=== PATIENT | female | born 1990 | race African-American/Black ===

== ENCOUNTER 2016-08-22 13:07 | Inpatient (IN) ==
[2016-08-22 14:38] LABS: Apearance,Urine Slightly Hazy (Clear); Bilirubin,Urine Negative (Negative); Blood, Urine Negative (Negative); Glucose,Urine (UA) Negative (Negative); Ketones,Urine Negative (Negative); Mucus,Urine Moderate /LPF (Occasional); Nitrite,Urine Negative (Negative); Protein,Urine 30 MG/DL; RBC,Urine 1 /HPF (0-4); Squamous Epithelial Cell,Urine Occasional /HPF (0-10); Urine Color Yellow (Yellow); Urine Specific Gravity 1.021 (1.001-1.035); Urine Urobilinogen < 2.0 EU/DL (0.2-1.0); WBC,Urine 6 /HPF (0-6)
[2016-08-22] MEDS ORDERED: ONDANSETRON 4 MG/2 ML VIAL IV PRN (15:11)
[2016-08-22] MEDS ORDERED: MEPERIDINE 50 MG/1 ML VIAL IV PRN (15:11)
[2016-08-22] MEDS ORDERED: BUTORPHANOL 2 MG/ML VIAL IV PRN (15:11)
[2016-08-22] MEDS ORDERED: LACTATED RINGERS 1,000 ML IV SCH (15:30)
[2016-08-22 16:07] LABS: Basophils % 0.4 % (0.0-0.8); Eosinophils # 0.1 10*3/uL (0.0-0.87); Eosinophils % 0.7 % (0.00-10.9); Hematocrit 35.2 VOL% (35.7-47.0); Hemoglobin 11.3 GM/DL (12.0-16.0); Immature Granulocytes % 0.4 %; Immature Granulocytes Absolute 0.03 #; Lymphocytes # 2.2 10*3/uL (1.4-4.0); Lymphocytes % 30.9 % (21.3-54.2); Mean Corpuscular HGB Conc 32.1 GM/DL (32-36); Mean Corpuscular Hemoglobin 26 PG (27-34); Mean Corpuscular Volume 81.7 FL (87-102); Mean Platelet Volume 12.2 FL (9.6-12.0); Monocytes # 0.5 10*3/uL (0.11-0.8); Monocytes % 7.4 % (1.7-12.7); Neutrophils # 4.3 10*3/uL (1.4-7.4); Neutrophils % 60.2 % (38.7-73.9); Platelet Count 242 T/CUMM (130-400); Red Blood Count 4.31 MC/CUMM (3.8-5.5); Red Cell Distribution Width 15.5 % (9.3-17.3); White Blood Count 7.1 T/CUMM (4-12)
--- NOTE | 2016-08-22 16:15 | OB/GYN History & Physical ---
History of Present Illness Chief complaint: In for PIH and evaluation of status History of present illness: Ms. Mims is a 25 year old female 2 para 1 living 1. Her AUGIE is 2016 for an estimated gestational age of 37 weeks and 4 days. The patient presented to the labor department for nonstress test secondary to elevated blood pressures. The patient was monitored for several hours her blood pressures remain unstable. In light of the sinus patient will be admitted for observation and possible section per Dr. Briseno in the morning. The risk and benefits of been thoroughly discussed with this patient significant other plan of care has been discussed with Dr. Briseno, all parties are in agreement plan. The patient received her care through the [facility] and her course was complicated by the fact that the patient was hypertensive. And also that the patient was a previous section with an emergency secondary to distress. labs she is O+, RPR is nonreactive, hepatitis B is negative, HIV is negative, rubella is immune , GBS cultures negative. Review of systems is negative with exception of above. Home Medications Medication Instructions Recorded Confirmed Type Labetalol Tab [Trandate Tab] 1 tablet PO BID 06/28/16 08/20/16 History Vits #90/Iron Fum/FA 1 tablet PO DAILY 06/28/16 08/20/16 History [ Formula Tablet] Ferrous Sulfate [Ferrous Sulfate 1 capsule PO DAILY 08/08/16 08/20/16 History Cap] Allergies Allergy/AdvReac Type Severity Reaction Status Date / Time No Known Allergies Allergy Verified 08/22/16 13:32 12 point system: reviewed and no additional remarkable complaints except as stated (PIH) Medical,Surgical,& Family Hx - Medical History Cardio: History of: Hypertension Reproductive: History of: Sexually Transmitted Disorders (Gonorrhea in 2013) - Surgical History Reproductive Surgeries: Surgical HX of;: Breast Surgery (Fibroadenomas removed from the breast), Section - Family History Family History: Reports;: Family Hypertension (Mother) - Social History Smoking Status: Never smoker Marital Status: Single Lives With:: Significant Other Functional capacity: independent ambulation 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 - Constitutional General appearance: no acute distress - Antepartum / Post Antepartum Exam Cervix - Dilatation: 1 cm Effacement: 50% Station: -3 Rupture: Intact Presentation: Vertex Heart Rate: 130s Breast: bilateral: normal Abdomen obstetrics: Present: bowel sounds normal Vagina: Present: normal moisture Uterus exam: Present: enlarged Anus/Rectum: Present: normal perianal skin - Neck Neck exam: Present: normal inspection - Respiratory Respiratory exam: Present: clear to auscultation bilaterally - Cardiovascular Cardiovascular exam: Present: regular rate and rhythm - GI/Abdominal GI/Abdominal exam: Present: normal bowel sounds, soft - Extremities Exam Extremities exam: Present: edema - Neurological Exam Neurological exam: Present: alert, oriented X3 - Psychiatric Psychiatric exam: Present: normal affect, normal mood - Skin Skin exam: Present: normal color, warm Assessment and Plan (1) 37 weeks gestation of Status: Acute Assessment and plan: Admit IV Fluids Active management of hypertension Informed consent for repeat section Anticipate delivery of a viable infant Current Visit: Yes (2) Hypertension affecting in third trimester Status: Acute Assessment and plan: Same as above. Current Visit: Yes
[2016-08-22] MEDS ORDERED: ALUMINUM/MAGNES/SIMETH MAX STR 30 ML UDCUP PO PRN (19:25)
[2016-08-22] MEDS: LABETALOL 200 MG TABLET PO SCH (21:04)
[2016-08-22 21:51] LABS: Alanine Aminotransferase 11 U/L (13-56); Albumin 2.5 G/DL (3.4-5.0); Alkaline Phosphatase 140 U/L (45-117); Aspartate Amino Transferase 10 U/L (0-37); Bilirubin,Total < 0.39 MG/DL (0.2-1.0); Blood Urea Nitrogen 9 MG/DL (7-18); Calcium 8.8 MG/DL (8.5-10.1); Glucose 110 MG/DL (74-106); Osmolality,Calculated 276.5 MOS/KG (273-304); Potassium 3.7 MMOL/L (3.5-5.1); Sodium 139 MMOL/L (136-145); Total Protein 6.1 G/DL (6.4-8.3)
[2016-08-22 21:57] LABS: PT Patient Result 10.3 SECS; Partial Thromboplastin Time 26.2 SECS (0-40)
[2016-08-23] MEDS ORDERED: LACTATED RINGERS 1,000 ML IV SCH ×2 (06:00→10:30)
[2016-08-23 06:15] LABS: Basophils % 0.5 % (0.0-0.8); Eosinophils # 0.1 10*3/uL (0.0-0.87); Eosinophils % 1.1 % (0.00-10.9); Hematocrit 30.7 VOL% (35.7-47.0); Hemoglobin 10.1 GM/DL (12.0-16.0); Immature Granulocytes % 0.3 %; Immature Granulocytes Absolute 0.02 #; Lymphocytes # 2.3 10*3/uL (1.4-4.0); Lymphocytes % 35.2 % (21.3-54.2); Mean Corpuscular HGB Conc 32.9 GM/DL (32-36); Mean Corpuscular Hemoglobin 26 PG (27-34); Mean Corpuscular Volume 80.2 FL (87-102); Mean Platelet Volume 11.9 FL (9.6-12.0); Monocytes # 0.6 10*3/uL (0.11-0.8); Monocytes % 9.1 % (1.7-12.7); Neutrophils # 3.5 10*3/uL (1.4-7.4); Neutrophils % 53.8 % (38.7-73.9); Platelet Count 211 T/CUMM (130-400); Red Blood Count 3.83 MC/CUMM (3.8-5.5); Red Cell Distribution Width 15.3 % (9.3-17.3); White Blood Count 6.5 T/CUMM (4-12)
[2016-08-23 06:21] LABS: PT Patient Result 10.1 SECS; Partial Thromboplastin Time 25.4 SECS (0-40)
[2016-08-23 06:44] LABS: Albumin 2.5 G/DL (3.4-5.0); Bilirubin,Total 0.5 MG/DL (0.2-1.0); Calcium 8.8 MG/DL (8.5-10.1); Osmolality,Calculated 271.7 MOS/KG (273-304); Potassium 4.1 MMOL/L (3.5-5.1); Uric Acid 4.9 MG/DL (2.6-6.0)
[2016-08-23] MEDS ORDERED: CITRIC ACID/SODIUM CITRATE 30 ML UDCUP PO ONE (08:20)
[2016-08-23] MEDS ORDERED: LACTATED RINGERS 1,000 ML IV ONE (08:20)
[2016-08-23] MEDS ORDERED: FAMOTIDINE 20 MG/2 ML VIAL IV ONE (08:20)
[2016-08-23] MEDS ORDERED: OXYTOCIN/LR 30 UNIT/1,000 ML BAG IV ONE (08:33)
[2016-08-23] MEDS ORDERED: ceFAZolin 2,000 MG in PREMIX 1 EACH IV ONE (08:33)
[2016-08-23] MEDS ORDERED: OXYTOCIN 10 UNIT/ML VIAL ONE (08:58)
[2016-08-23] MEDS: LABETALOL 200 MG TABLET PO SCH ×2 (09:00→21:02)
--- NOTE | 2016-08-23 10:24 | Operative Note ---
Date of procedure: 08/23/16 Procedure: Preoperative diagnosis: PIH, uncontrolled with antihypertensive medicine Postoperative diagnosis: Same Anesthesia:[] Regional anesthesia, epidural Estimated blood loss: [] 300 cc Surgeon: Dr. Briseno Findings: [] Delivery time was 954, female , Apgars was 9 at 1 minute 9 at 5 minutes, 6 pounds and 3 ounces, estimated blood loss was 300 cc Complications: None Procedure: Low transverse section The patient was taken to the operating suite heart tones were obtained prior to and after regional anesthesia was obtained. She was placed in supine position her abdomen was prepped and draped in usual manner for major abdominal surgery. Through an abdominal incision the skin, subcutaneous, fascial layer and peritoneal the abdomen was entered. The bladder flap was created and a low transverse incision was made.. Fluid was clear and normal amount X, Apgars, the placenta was delivered and sent to lab for further evaluation. Injected with intrauterine Pitocin. The first layer of the uterus was closed with #1 Vicryl in a continuous locking manner. Close to imbricate the first layer with #1 Vicryl. The peritoneum was approximated with #2-0 Vicryl.[] All the last sponges and instruments were accounted for -2.) #2-0 Vicryl. Fascia was approximated with #0-0 Maxon.. The skin was approximated with stewart. She tolerated procedure well and was taken to recovery room in stable condition. Surgeon / Physician: Fadi Briseno Results - Labs CBC & BMP: 08/23/16 05:29 08/23/16 05:29 Discharge Plan - Discharge Medications No Action Vits #90/Iron Fum/FA [ Formula Tablet] 1 tablet PO DAILY Ferrous Sulfate [Ferrous Sulfate Cap] 1 capsule PO DAILY Labetalol Tab [Trandate Tab] 1 tablet PO BID - Follow Up or Referral - Forms/Instructions
[2016-08-23] MEDS ORDERED: ONDANSETRON 4 MG/2 ML VIAL IV PRN (10:25)
[2016-08-23] MEDS ORDERED: ACETAMINOPHEN 325 MG TABLET PO PRN (10:25)
[2016-08-23] MEDS ORDERED: OXYTOCIN/LR 20 UNIT/1,000 ML BAG IV ONE (10:25)
[2016-08-23] MEDS ORDERED: RHO(D) IMMUNE GLOBULIN 300 MCG SYRINGE IM ONE (10:25)
[2016-08-23 10:32] LABS: Cord Venous Blood HCO3 21.1 MMOL/L; Cord Venous Blood PCO2 41.1 MMHG; Cord Venous Blood PO2 34.8
[2016-08-23 10:35] LABS: Apearance,Urine CLEAR (Clear); Bilirubin,Urine Negative (Negative); Blood, Urine Negative (Negative); Glucose,Urine (UA) Negative (Negative); Ketones,Urine Negative (Negative); Nitrite,Urine Negative (Negative); Protein,Urine Negative; Squamous Epithelial Cell,Urine Occasional /HPF (0-10); Urine Color Colorless (Yellow); Urine Specific Gravity 1.004 (1.001-1.035); Urine Urobilinogen < 2.0 EU/DL (0.2-1.0); WBC,Urine <1 /HPF (0-6)
[2016-08-23] MEDS ORDERED: diphenhydrAMINE 50 MG/1 ML VIAL IV ONE (11:02)
[2016-08-23] MEDS ORDERED: fentaNYL 100 MCG/2 ML VIAL ONE (11:24)
--- NOTE | 2016-08-23 16:06 | Anesthesia Post-Op ---
Anesthesia Post OP - Post Ansesthetic Evaluation Patient seen in post op: Yes Resp: within normal limits CV: within normal limits Mental: within normal limits Temp: within normal limits Hojn-Nr-Edlndixln: within normal limits Nausea and Vomiting: within normal limits Pain: within normal limits
[2016-08-23] MEDS: IBUPROFEN 800 MG TABLET PO PRN (16:38)
[2016-08-23 19:40] LABS: Basophils % 0.4 % (0.0-0.8); Eosinophils # 0.1 10*3/uL (0.0-0.87); Eosinophils % 0.6 % (0.00-10.9); Hematocrit 29.7 VOL% (35.7-47.0); Hemoglobin 9.8 GM/DL (12.0-16.0); Immature Granulocytes % 0.5 %; Immature Granulocytes Absolute 0.04 #; Lymphocytes # 2.3 10*3/uL (1.4-4.0); Lymphocytes % 26.9 % (21.3-54.2); Mean Corpuscular Hemoglobin 27 PG (27-34); Mean Corpuscular Volume 80.5 FL (87-102); Monocytes # 0.7 10*3/uL (0.11-0.8); Monocytes % 7.8 % (1.7-12.7); Neutrophils # 5.4 10*3/uL (1.4-7.4); Neutrophils % 63.8 % (38.7-73.9); Platelet Count 201 T/CUMM (130-400); Red Blood Count 3.69 MC/CUMM (3.8-5.5); Red Cell Distribution Width 15.5 % (9.3-17.3); White Blood Count 8.4 T/CUMM (4-12)
[2016-08-23] MEDS: DOCUSATE SODIUM 100 MG CAPSULE PO SCH (20:30)
[2016-08-24 05:20] LABS: Basophils % 0.4 % (0.0-0.8); Eosinophils # 0.1 10*3/uL (0.0-0.87); Eosinophils % 1.3 % (0.00-10.9); Hematocrit 31.7 VOL% (35.7-47.0); Hemoglobin 10.2 GM/DL (12.0-16.0); Immature Granulocytes % 0.5 %; Immature Granulocytes Absolute 0.04 #; Lymphocytes # 1.5 10*3/uL (1.4-4.0); Lymphocytes % 18.9 % (21.3-54.2); Mean Corpuscular HGB Conc 32.2 GM/DL (32-36); Mean Corpuscular Hemoglobin 26 PG (27-34); Mean Corpuscular Volume 80.5 FL (87-102); Mean Platelet Volume 11.6 FL (9.6-12.0); Monocytes # 0.5 10*3/uL (0.11-0.8); Monocytes % 6.7 % (1.7-12.7); Neutrophils # 5.6 10*3/uL (1.4-7.4); Neutrophils % 72.2 % (38.7-73.9); Platelet Count 188 T/CUMM (130-400); Red Blood Count 3.94 MC/CUMM (3.8-5.5); Red Cell Distribution Width 15.3 % (9.3-17.3); White Blood Count 7.7 T/CUMM (4-12)
[2016-08-24] MEDS: IBUPROFEN 800 MG TABLET PO PRN (07:58)
[2016-08-24] MEDS: SIMETHICONE CHEW 80 MG TABLET PO PRN ×2 (09:13→21:44)
[2016-08-24] MEDS: MULTIVITAMIN (PRENATAL) TABLET PO SCH (09:13)
[2016-08-24] MEDS: MAGNESIUM HYDROXIDE SUSP 30 ML UDCUP PO PRN ×2 (09:13→21:45)
[2016-08-24] MEDS: LABETALOL 200 MG TABLET PO SCH ×2 (09:15→21:44)
[2016-08-24] MEDS: DOCUSATE SODIUM 100 MG CAPSULE PO SCH ×2 (09:15→21:44)
--- NOTE | 2016-08-24 12:25 | OB/GYN Progress Note ---
Assessment and Plan (1) 37 weeks gestation of Status: Acute Assessment and plan: Admit IV Fluids Active management of hypertension Informed consent for repeat section Anticipate delivery of a viable infant Current Visit: Yes (2) Hypertension affecting in third trimester Status: Acute Assessment and plan: Same as above. Current Visit: Yes (3) S/P primary low transverse Status: Acute Current Visit: Yes (4) S/P repeat low transverse Status: Acute Assessment and plan: Initiate routine postop orders. 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 Bonding well with . Exam SHEET METAL FABRICATOR - Constitutional Vitals: Vital Signs Temp Pulse Resp BP Pulse Ox 08/24/16 11:34 97.0 F L 80 17 158/83 96 08/24/16 11:33 17 08/24/16 10:00 20 08/24/16 08:00 22 08/24/16 07:37 98 F 71 22 166/94 99 08/24/16 04:00 98.2 F 77 20 158/90 99 08/24/16 00:01 97.6 F 84 20 145/80 100 08/23/16 22:00 20 08/23/16 20:00 98.3 F 64 18 142/83 99 08/23/16 17:42 20 08/23/16 16:00 20 08/23/16 15:15 64 20 177/79 99 08/23/16 14:15 55 L 20 164/91 99 08/23/16 14:00 20 08/23/16 13:45 59 L 20 167/84 100 08/23/16 13:15 97.8 F 58 L 20 167/85 100 General appearance: no acute distress - Antepartum / Post Post Exam Breast: bilateral: normal Abdomen obstetrics: Present: bowel sounds normal Vagina: Present: normal moisture, discharge (light lochia rubra) Uterus exam: Present: enlarged (FF Ml) Anus/Rectum: Present: normal perianal skin - Head Head exam: Present: normal inspection - Cardiovascular Cardiovascular exam: Present: regular rate and rhythm - GI/Abdominal GI/Abdominal exam: Present: normal bowel sounds, soft - Extremities Exam Extremities exam: Present: normal inspection - Back Exam Back exam: Present: normal inspection - Neurological Exam Neurological exam: Present: alert, oriented X3 - Psychiatric Psychiatric exam: Present: normal affect, normal mood - Skin Skin exam: Present: normal color, warm Results - Labs CBC & BMP: 08/24/16 05:03 08/23/16 05:29
[2016-08-25] MEDS ORDERED: MAGNESIUM CITRATE 300 ML BOTTLE PO ONE (08:03)
[2016-08-25] MEDS ORDERED: BISACODYL 10 MG SUPP RECTAL ONE (08:03)
[2016-08-25] MEDS: DOCUSATE SODIUM 100 MG CAPSULE PO SCH (08:57)
[2016-08-25] MEDS: MULTIVITAMIN (PRENATAL) TABLET PO SCH (08:57)
[2016-08-25] MEDS: LABETALOL 200 MG TABLET PO SCH (08:57)
[2016-08-25] MEDS: MAGNESIUM HYDROXIDE SUSP 30 ML UDCUP PO PRN (08:58)
[2016-08-25] MEDS: IBUPROFEN 800 MG TABLET PO PRN (10:30)
[2016-08-25 11:42] VITALS: BP 161/90
--- NOTE | 2016-10-14 02:11 | Discharge Summary ---
DATE OF ADMISSION: 08/22/2016 DATE OF DISCHARGE: 08/24/2016 This patient was admitted with elevation of her blood pressure at 37 weeks and 4 days. She was obser john overnight. Blood pressure remained unstable. She was a previous section as well. Seco ndary to distress, she underwent a repeat section uneventfully and delivered a viable 6 pounds and 3 ounces. Apgars with 9 at 1 minute and 9 at 5 minutes. She has unremarkable po stoperative course, remained in the hospital for two days and was discharged without any c omplications. She advised to follow up her office in approximately two weeks.
== END 2016-08-25 15:50 | disposition home or self-care (01) | DRG 765 ==
LOC: N.LDOUT 13:07 → N.LD 13:08 → N.OB 08-23 13:09
PROVIDERS: ADMIT Obstetrics & Gynecology; ATTEND Obstetrics & Gynecology
PROC: LDCSECT (ICD-10-PCS; 2016-08-23 08:30)

== ENCOUNTER 2018-06-23 09:40 | Inpatient (IN) ==
[2018-06-23] MEDS ORDERED: LACTATED RINGERS 1,000 ML IV ONE (11:39)
[2018-06-23] MEDS ORDERED: ONDANSETRON 4 MG/2 ML VIAL IV ONE (11:39)
[2018-06-23] MEDS ORDERED: MEPERIDINE 50 MG/1 ML VIAL IV ONE (11:39)
[2018-06-23] MEDS: LACTATED RINGERS 1,000 ML IV SCH ×2 (11:53→19:40)
[2018-06-23] MEDS ORDERED: MEPERIDINE 25 MG/1 ML VIAL IV ONE (12:00)
[2018-06-23] MEDS ORDERED: ceFAZolin 3,000 MG in SYRINGE 1 EACH IV ONE (12:51)
[2018-06-23] MEDS ORDERED: FAMOTIDINE 20 MG/2 ML VIAL IV ONE (12:51)
[2018-06-23] MEDS ORDERED: CITRIC ACID/SODIUM CITRATE 30 ML UDCUP PO ONE (12:51)
[2018-06-23 13:33] LABS: Basophils % 0.6 % (0.0-0.8); Eosinophils # 0.1 10*3/uL (0.0-0.87); Eosinophils % 0.8 % (0.00-10.9); Hematocrit 26.2 VOL% (35.7-47.0); Hemoglobin 7.7 GM/DL (12.0-16.0); Immature Granulocytes % 0.6 %; Immature Granulocytes Absolute 0.04 #; Lymphocytes # 1.8 10*3/uL (1.4-4.0); Lymphocytes % 28.8 % (21.3-54.2); Mean Corpuscular HGB Conc 29.4 GM/DL (32-36); Mean Corpuscular Volume 76.2 FL (87-102); Mean Platelet Volume 12.4 FL (9.6-12.0); Monocytes % 8.8 % (1.7-12.7); NRBC # 0.02 10*3/uL; Neutrophils % 60.4 % (38.7-73.9); Platelet Count 199 T/CUMM (130-400); Red Blood Count 3.44 MC/CUMM (3.8-5.5); Red Cell Distribution Width 15.2 % (9.3-17.3); White Blood Count 6.4 T/CUMM (4-12)
[2018-06-23 13:42] LABS: INR 0.9; PT Patient Result 10.2 SECS; Partial Thromboplastin Time 23.6 SECS (0-40)
[2018-06-23 13:57] LABS: Alanine Aminotransferase 11 U/L (13-56); Albumin 2.7 G/DL (3.4-5.0); Alkaline Phosphatase 188 U/L (45-117); Aspartate Amino Transferase 13 U/L (0-37); Bilirubin,Total < 0.39 MG/DL (0.2-1.0); Blood Urea Nitrogen 12 MG/DL (7-18); Calcium 8.4 MG/DL (8.5-10.1); Glucose 83 MG/DL (74-106); Osmolality,Calculated 275.5 MOS/KG (273-304); Total Protein 6.9 G/DL (6.4-8.3)
[2018-06-24] MEDS ORDERED: CITRIC ACID/SODIUM CITRATE 30 ML UDCUP ONE (08:45)
[2018-06-24] MEDS ORDERED: OXYTOCIN/LR 30 UNIT/1,000 ML BAG IV ONE (08:53)
[2018-06-24] MEDS ORDERED: ceFAZolin 1,000 MG VIAL ONE (08:54)
[2018-06-24] MEDS ORDERED: OXYTOCIN 10 UNIT/ML VIAL ONE (08:54)
[2018-06-24] MEDS ORDERED: FAMOTIDINE 20 MG/2 ML VIAL IV ONE (08:54)
[2018-06-24] MEDS: LACTATED RINGERS 1,000 ML IV SCH (09:01)
[2018-06-24 10:31] LABS: Cord Venous Blood HCO3 21.1 MMOL/L; Cord Venous Blood PCO2 41.5 MMHG; Cord Venous Blood PO2 36.1
[2018-06-24 10:38] LABS: Apearance,Urine Clear (Clear); Bilirubin,Urine Negative (Negative); Blood, Urine Negative (Negative); Glucose,Urine (UA) Negative (Negative); Ketones,Urine Negative (Negative); Nitrite,Urine Negative (Negative); Protein,Urine Negative; RBC,Urine Rare /HPF (0-4); Squamous Epithelial Cell,Urine Many /HPF (0-10); Urine Color Yellow (Yellow); Urine Urobilinogen < 2.0 EU/DL (0.2-1.0)
[2018-06-24 10:39] LABS: Mucus,Urine Trace /LPF (Occasional)
[2018-06-24] MEDS ORDERED: diphenhydrAMINE 50 MG/1 ML VIAL IV PRN (11:50)
[2018-06-24] MEDS ORDERED: ONDANSETRON 4 MG/2 ML VIAL IV PRN ×2 (11:50→18:07)
[2018-06-24] MEDS ORDERED: fentaNYL 100 MCG/2 ML VIAL ONE (12:02)
[2018-06-24] MEDS ORDERED: ONDANSETRON 4 MG/2 ML VIAL ONE ×2 (12:02→12:14)
[2018-06-24] MEDS ORDERED: ROPIVACAINE 0.5% 30 ML VIAL ONE ×2 (12:02→12:03)
[2018-06-24] MEDS ORDERED: BUPIVACAINE SPINAL 0.75% 2 ML AMP SPINAL ONE (12:02)
[2018-06-24] MEDS ORDERED: MORPHINE 10 MG/10 ML VIAL ONE (12:02)
[2018-06-24] MEDS ORDERED: PHENYLEPHRINE 1 MG/10 ML SYRINGE IV ONE (12:03)
[2018-06-24] MEDS ORDERED: diphenhydrAMINE 50 MG/1 ML VIAL ONE (12:10)
[2018-06-24] MEDS ORDERED: OXYTOCIN/LR 20 UNIT/1,000 ML BAG IV ONE ×2 (12:22→18:07)
[2018-06-24] MEDS ORDERED: MEPERIDINE 25 MG/1 ML VIAL ONE ×2 (14:23→14:24)
[2018-06-24] MEDS: hydrALAZINE 20 MG/1 ML VIAL IV PRN ×2 (14:30→15:42)
[2018-06-24] MEDS ORDERED: hydrOXYzine HCL 25 MG/1 ML VIAL IM PRN (16:34)
[2018-06-24] MEDS ORDERED: ceFAZolin 1,000 MG in SYRINGE 1 EACH IV SCH (18:00)
[2018-06-24] MEDS ORDERED: ACETAMINOPHEN 325 MG TABLET PO PRN (18:07)
[2018-06-24] MEDS ORDERED: RHO(D) IMMUNE GLOBULIN 300 MCG SYRINGE IM ONE (18:07)
[2018-06-24] MEDS: ceFAZolin 1,000 MG in SYRINGE 1 EACH IV SCH (18:10)
[2018-06-24 18:30] LABS: Basophils % 0.3 % (0.0-0.8); Eosinophils # 0.1 10*3/uL (0.0-0.87); Eosinophils % 0.5 % (0.00-10.9); Hematocrit 30.9 VOL% (35.7-47.0); Immature Granulocytes % 0.6 %; Immature Granulocytes Absolute 0.06 #; Mean Corpuscular HGB Conc 30.4 GM/DL (32-36); Mean Corpuscular Volume 75.6 FL (87-102); Mean Platelet Volume 11.5 FL (9.6-12.0); Monocytes % 6.3 % (1.7-12.7); Neutrophils % 73.3 % (38.7-73.9); Platelet Count 175 T/CUMM (130-400); Red Blood Count 4.09 MC/CUMM (3.8-5.5); Red Cell Distribution Width 15.4 % (9.3-17.3); White Blood Count 10.6 T/CUMM (4-12)
[2018-06-24] MEDS ORDERED: LACTATED RINGERS 1,000 ML IV SCH (18:30)
[2018-06-24 18:31] LABS: Hemoglobin 9.4 GM/DL (12.0-16.0)
[2018-06-24] MEDS: FUROSEMIDE 40 MG/4 ML VIAL IV SCH (20:21)
[2018-06-24] MEDS: DOCUSATE SODIUM 100 MG CAPSULE PO SCH (20:54)
[2018-06-24] MEDS ORDERED: HydrOXYzine PAMOATE 25 MG CAPSULE PO PRN (22:00)
[2018-06-25] MEDS: FUROSEMIDE 40 MG/4 ML VIAL IV SCH ×2 (02:06→09:28)
[2018-06-25] MEDS: ceFAZolin 1,000 MG in SYRINGE 1 EACH IV SCH (02:44)
[2018-06-25 05:55] LABS: Basophils % 0.4 % (0.0-0.8); Eosinophils # 0.1 10*3/uL (0.0-0.87); Eosinophils % 1.2 % (0.00-10.9); Hematocrit 32.2 VOL% (35.7-47.0); Hemoglobin 9.7 GM/DL (12.0-16.0); Immature Granulocytes % 0.4 %; Immature Granulocytes Absolute 0.04 #; Lymphocytes # 1.9 10*3/uL (1.4-4.0); Lymphocytes % 19.5 % (21.3-54.2); Mean Corpuscular HGB Conc 30.1 GM/DL (32-36); Mean Corpuscular Volume 75.4 FL (87-102); Mean Platelet Volume 12.4 FL (9.6-12.0); Neutrophils % 70.5 % (38.7-73.9); Platelet Count 197 T/CUMM (130-400); Red Blood Count 4.27 MC/CUMM (3.8-5.5); Red Cell Distribution Width 15.4 % (9.3-17.3); White Blood Count 9.8 T/CUMM (4-12)
[2018-06-25] MEDS ORDERED: diphenhydrAMINE CAP 25 MG CAPSULE PO PRN (09:10)
[2018-06-25] MEDS: DOCUSATE SODIUM 100 MG CAPSULE PO SCH ×2 (09:17→20:39)
[2018-06-25] MEDS: MULTIVITAMIN (PRENATAL) TABLET PO SCH (09:17)
[2018-06-25] MEDS: FERROUS SULFATE 325 MG TABLET PO SCH (09:19)
[2018-06-25] MEDS ORDERED: FUROSEMIDE 40 MG/4 ML VIAL IV ONE (09:30)
[2018-06-25] MEDS: MAGNESIUM HYDROXIDE SUSP 30 ML UDCUP PO PRN ×2 (13:29→20:39)
[2018-06-25] MEDS: METOCLOPRAMIDE 10 MG TABLET PO SCH ×2 (13:29→20:39)
[2018-06-25] MEDS: IBUPROFEN 800 MG TABLET PO PRN (14:12)
[2018-06-25] MEDS: oxyCODONE/ACETAMINOPHEN 5-325 MG TABLET PO PRN ×2 (14:44→21:21)
[2018-06-25] MEDS: SIMETHICONE CHEW 80 MG TABLET PO PRN ×2 (16:15→22:41)
[2018-06-25] MEDS ORDERED: BISACODYL 10 MG SUPP RECTAL PRN (16:44)
[2018-06-25] MEDS ORDERED: FUROSEMIDE 40 MG/4 ML VIAL IV SCH (18:35)
[2018-06-26] MEDS ORDERED: MAGNESIUM CITRATE 300 ML BOTTLE PO ONE (02:32)
[2018-06-26] MEDS: oxyCODONE/ACETAMINOPHEN 5-325 MG TABLET PO PRN ×2 (03:08→08:54)
[2018-06-26] MEDS: METOCLOPRAMIDE 10 MG TABLET PO SCH (05:40)
[2018-06-26] MEDS: IBUPROFEN 800 MG TABLET PO PRN (05:40)
[2018-06-26] MEDS: SIMETHICONE CHEW 80 MG TABLET PO PRN (05:40)
[2018-06-26 08:20] VITALS: BP 166/103
[2018-06-26] MEDS: MULTIVITAMIN (PRENATAL) TABLET PO SCH (08:53)
[2018-06-26] MEDS: MAGNESIUM HYDROXIDE SUSP 30 ML UDCUP PO PRN (08:53)
[2018-06-26] MEDS: DOCUSATE SODIUM 100 MG CAPSULE PO SCH (08:53)
[2018-06-26] MEDS: FERROUS SULFATE 325 MG TABLET PO SCH (08:53)
[2018-06-26] MEDS ORDERED: LABETALOL 100 MG TABLET PO SCH (21:00)
== END 2018-06-26 11:50 | disposition home or self-care (01) | DRG 540 ==
LOC: N.LDOUT 09:40 → N.LD 09:42 → N.OB 06-24 15:56
PROVIDERS: ADMIT Obstetrics & Gynecology; ATTEND Obstetrics & Gynecology

== ENCOUNTER 2019-04-28 13:37 | Inpatient (IN) ==
[2019-04-28] MEDS ORDERED: ONDANSETRON 4 MG/2 ML VIAL IV STA (14:21)
[2019-04-28] MEDS ORDERED: SODIUM CHLORIDE 0.9% 1,000 ML IV STA (14:21)
[2019-04-28] MEDS ORDERED: HYDROmorphone 2 MG/1 ML VIAL IV STA (14:34)
[2019-04-28 14:40] LABS: Basophils # 0.1 10*3/uL (0.0-0.2); Basophils % 0.7 % (0.0-0.8); Eosinophils # 0.1 10*3/uL (0.0-0.87); Eosinophils % 0.5 % (0.00-10.9); Hematocrit 37.9 VOL% (35.7-47.0); Hemoglobin 11.6 GM/DL (12.0-16.0); Immature Granulocytes % 0.4 %; Immature Granulocytes Absolute 0.04 #; Lymphocytes # 2.4 10*3/uL (1.4-4.0); Lymphocytes % 26.5 % (21.3-54.2); Mean Corpuscular HGB Conc 30.6 GM/DL (32-36); Mean Corpuscular Volume 79.6 FL (87-102); Mean Platelet Volume 11.3 FL (9.6-12.0); Monocytes % 5.9 % (1.7-12.7); Platelet Count 269 T/CUMM (130-400); Red Blood Count 4.76 MC/CUMM (3.8-5.5); Red Cell Distribution Width 13.8 % (9.3-17.3); White Blood Count 9.2 T/CUMM (4-12)
[2019-04-28 15:00] LABS: Albumin 3.6 G/DL (3.4-5.0); Bilirubin,Total 0.5 MG/DL (0.2-1.0); Calcium 9.1 MG/DL (8.5-10.1); Osmolality,Calculated 272.8 MOS/KG (273-304); Total Protein 7.7 G/DL (6.4-8.3)
[2019-04-28 16:16] LABS: Apearance,Urine CLEAR (Clear); Bilirubin,Urine Negative (Negative); Blood, Urine Negative (Negative); Glucose,Urine (UA) Negative (Negative); Ketones,Urine Negative (Negative); Mucus,Urine Occasional /LPF (Occasional); Nitrite,Urine Negative (Negative); Protein,Urine Negative; RBC,Urine 2 /HPF (0-4); Squamous Epithelial Cell,Urine Occasional /HPF (0-10); Urine Color Yellow (Yellow); Urine Specific Gravity 1.028 (1.001-1.035); Urine Urobilinogen < 2.0 EU/DL (0.2-1.0)
[2019-04-28] MEDS ORDERED: PROMETHAZINE 25 MG/1 ML VIAL IM PRN (19:24)
[2019-04-28] MEDS ORDERED: HYDROmorphone 2 MG/1 ML VIAL IV PRN (19:24)
[2019-04-28] MEDS ORDERED: ONDANSETRON 4 MG/2 ML VIAL IV PRN (19:24)
[2019-04-28] MEDS ORDERED: ACETAMINOPHEN 325 MG TABLET PO PRN (19:24)
[2019-04-28] MEDS: LACTATED RINGERS 1,000 ML IV SCH (19:47)
[2019-04-29] MEDS: LACTATED RINGERS 1,000 ML IV SCH ×2 (05:48→12:20)
[2019-04-29] MEDS ORDERED: CLINDAMYCIN INJ 900 MG in PREMIX 1 EACH IV ONE (06:38)
[2019-04-29 06:45] LABS: Basophils # 0.1 10*3/uL (0.0-0.2); Basophils % 0.7 % (0.0-0.8); Eosinophils # 0.2 10*3/uL (0.0-0.87); Eosinophils % 2.1 % (0.00-10.9); Hematocrit 37.3 VOL% (35.7-47.0); Hemoglobin 11.3 GM/DL (12.0-16.0); Immature Granulocytes % 0.4 %; Immature Granulocytes Absolute 0.03 #; Lymphocytes # 3.1 10*3/uL (1.4-4.0); Lymphocytes % 37.7 % (21.3-54.2); Mean Corpuscular HGB Conc 30.3 GM/DL (32-36); Mean Corpuscular Volume 81.8 FL (87-102); Mean Platelet Volume 12.1 FL (9.6-12.0); Monocytes % 7.5 % (1.7-12.7); Neutrophils % 51.6 % (38.7-73.9); Platelet Count 252 T/CUMM (130-400); Red Blood Count 4.56 MC/CUMM (3.8-5.5); Red Cell Distribution Width 14.1 % (9.3-17.3); White Blood Count 8.1 T/CUMM (4-12)
[2019-04-29 07:01] LABS: Osmolality,Calculated 273.7 MOS/KG (273-304)
[2019-04-29] MEDS: ENOXAPARIN 40 MG/0.4 ML SYRINGE SUBCUT SCH (09:38)
[2019-04-29] MEDS: PANTOPRAZOLE 40 MG TABLET PO SCH (09:40)
[2019-04-29] MEDS: amLODIPine 5 MG TABLET PO SCH (13:56)
[2019-04-29] MEDS: CHLORTHALIDONE 25 MG TABLET PO SCH (13:56)
[2019-04-30] MEDS: LACTATED RINGERS 1,000 ML IV SCH ×2 (02:31→12:57)
[2019-04-30] MEDS ORDERED: TISSUE ADHESIVE 1 EACH APPLICATOR TOP ONE (06:13)
[2019-04-30] MEDS ORDERED: DEXAMETHASONE 4 MG/1 ML VIAL ONE (06:22)
[2019-04-30] MEDS ORDERED: EPINEPHrine 1 MG/ML VIAL ONE (06:22)
[2019-04-30] MEDS ORDERED: ROPIVACAINE 0.5% 30 ML VIAL ONE (06:22)
[2019-04-30] MEDS ORDERED: CLINDAMYCIN INJ 900 MG in PREMIX 1 EACH IV ONE (06:30)
[2019-04-30] MEDS ORDERED: SUGAMMADEX 200 MG/2 ML VIAL IV ONE (08:31)
[2019-04-30] MEDS ORDERED: SEVOFLURANE 1 UNIT/15 MINUTE INH ONE (09:10)
[2019-04-30] MEDS ORDERED: LIDOCAINE 2% 5 ML VIAL ONE (09:10)
[2019-04-30] MEDS ORDERED: PHENYLEPHRINE 1 MG/10 ML SYRINGE IV ONE (09:10)
[2019-04-30] MEDS ORDERED: propofoL 200 MG/20 ML VIAL IV ONE (09:10)
[2019-04-30] MEDS ORDERED: ROCURONIUM 100 MG/10 ML VIAL IV ONE (09:11)
[2019-04-30] MEDS ORDERED: LACTATED RINGERS 1,000 ML IV ONE (09:11)
[2019-04-30] MEDS ORDERED: SUCCINYLCHOLINE 200 MG/10 ML VIAL ONE (09:11)
[2019-04-30] MEDS ORDERED: HYDROmorphone 2 MG/1 ML VIAL IV PRN (09:27)
[2019-04-30] MEDS ORDERED: ONDANSETRON 4 MG/2 ML VIAL IV PRN (09:27)
[2019-04-30] MEDS: amLODIPine 5 MG TABLET PO SCH (10:21)
[2019-04-30] MEDS: ENOXAPARIN 40 MG/0.4 ML SYRINGE SUBCUT SCH (10:21)
[2019-04-30] MEDS: CHLORTHALIDONE 25 MG TABLET PO SCH (10:21)
[2019-04-30] MEDS: PANTOPRAZOLE 40 MG TABLET PO SCH (10:21)
[2019-04-30] MEDS ORDERED: fentaNYL 100 MCG/2 ML VIAL ONE (11:38)
[2019-04-30] MEDS ORDERED: MIDAZOLAM 2 MG/2 ML VIAL ONE (11:38)
[2019-04-30 17:24] VITALS: BP 141/80
== END 2019-04-30 15:29 | disposition home or self-care (01) | DRG 228 ==
LOC: N.ED 13:37 → N.EDINP 16:41 → N.3E 18:52
PROVIDERS: ADMIT Surgery; ATTEND Surgery